=== PATIENT | male | born 1965 | race African-American/Black ===

== ENCOUNTER 2023-01-28 15:25 | Emergency (ER) | payer BC ==
[2023-01-28] MEDS ORDERED: Ondansetron ODT 4 MG TAB ONE (15:37)
[2023-01-28] MEDS ORDERED: predniSONE 20 MG TAB ONE (15:43)
[2023-01-28] MEDS ORDERED: Famotidine 20 MG TAB ONE (15:43)
[2023-01-28] MEDS ORDERED: diphenhydrAMINE 25 MG CAP ONE (15:43)
[2023-01-28] MEDS ORDERED: Sodium Chloride 0.9% 1,000 ML ONE ×2 (16:07→17:15)
[2023-01-28] MEDS ORDERED: Promethazine HCl 25 MG/ML VIAL ONE (16:31)
[2023-01-28] MEDS ORDERED: SODIUM CHLORIDE 0.9% IVPB SCH (16:45)
[2023-01-28] MEDS ORDERED: PROMETHAZINE HCL IVPB SCH (16:45)
[2023-01-28 17:27] LABS: #Eosinphils 0.2 thou/uL (0.0-0.7); #Lymphocytes 0.4 thou/uL (1.20-3.40); #Monocytes 0.9 thou/uL (0.11-0.59); #Neutrophils 10.4 thou/uL (1.40-6.50); %Basophils 0.4 % (0.0-1.0); %Eosinophils 1.5 % (0.0-10.0); %Lymphocytes 3.5 % (21.0-51.0); %Monocytes 7.6 % (0.0-10.0); Hemoglobin 13.9 g/dL (14.0-18.0); Mean Corpuscular HGB CONC 32.5 g/dL (32.0-36.0); Mean Corpuscular Hemoglobin 29.5 pg (27.0-31.0); Mean Corpuscular Volume 90.9 fl (78.0-98.0); Mean Platelet Volume 6.1 fL (7.4-10.4); Platelet Count 201 10x3/uL (130-400)
[2023-01-28 17:42] LABS: ALT (SGPT) 14 U/L (8-55); AST (SGOT) 15 U/L (5-34); Albumin 3.6 g/dL (3.5-5.0); Alkaline Phosphatase 45 U/L (40-110); Anion Gap 12 mmol/L (10-20); BUN (Urea Nitrogen) 14 mg/dL (8.4-25.7); Bilirubin, Total 0.7 mg/dL (0.2-1.2); CK (CPK) 211 U/L (30-200); Calc. Creatinine Clearance 0 mL/min (70-130); Calcium 8.2 mg/dL (7.8-10.44); Carbon Dioxide 25 mmol/L (22-29); Chloride 111 mmol/L (98-107); Estimated GFR 92; Globulin 2.5 g/dL (2.4-3.5); Glucose 75 mg/dL (70-105); Potassium 4.1 mmol/L (3.5-5.1); Protein, Total 6.1 g/dL (6.0-8.3); Sodium 144 mmol/L (136-145)
== END 2023-01-28 18:00 | disposition home or self-care (01) ==
LOC: NAV ERS 15:25
DX: T63.441A Toxic effect of venom of bees, accidental (unintentional), initial encounter (principal); T67.5XXA Heat exhaustion, unspecified, initial encounter; E86.0 Dehydration; R11.2 Nausea with vomiting, unspecified
CPT/HCPCS: 36415; 80053; 82550; 85025; 96360; 96361; J2550; J3490; J7050; J7512; Q0162